=== PATIENT | female | born 1990 | race Caucasian/White ===

== ENCOUNTER → 2018-07-24 09:30 | Outpatient (CLI) | payer BC, SELFPAY ==
--- NOTE | 2018-07-24 09:32 | DI.US.S_ITS ---
PROCEDURE: US OB <= 14 WEEKS FETUS INDICATIONS: DATES OUTSIDE/PRIOR DATING DATA: Last menstrual period (LMP): 05/19/18. LMP-based estimated date of delivery (DYLON): 02/23/19. First dating scan (date and location): 07/24/18. Estimated date of delivery (DYLON) from first dating scan: 03/02/19. TECHNIQUE: Real-time scanning was performed of the fetus and maternal pelvic organs, with image documentation. Endovaginal scanning was also performed to better visualize the fetus and maternal ovaries. COMPARISON: None. FINDINGS: Embryo: Alicia-rump length measures 1.9 cm corresponding to 8 weeks 3 days. Embryonic heart rate measures 173 beats per minute. Measurement variability in dating: +/- 4 weeks by LMP, +/- 7 days by mean sac diameter (use before 6 weeks gestation if crown-rump length not able to be measured), +/- 5 days by crown-rump length (up to 8 weeks 6 days gestation), +/- 7 days by crown-rump length (up to 13 weeks 6 days gestation). Maternal organs: Ovaries within normal limits come with right corpus luteal cyst. Limited images through the kidneys demonstrate no hydronephrosis. IMPRESSION: 8 week 3 day single living IUP. Dictated by: Nam Joseph [facility] Interpreted: Stan Engel MD on 07/24/2018 at 11:49 Approved by: Stan Engel M.D. on 07/24/2018 at 12:59
[2018-07-24 10:44] LABS: Bilirubin Urine UA NEGATIVE (NEGATIVE); Color Urine UA YELLOW; Glucose Urine UA NEGATIVE (Normal); Ketones Urine UA TRACE (NEGATIVE); Leukocyte Esterase Urine UA TRACE (NEGATIVE); Nitrite Urine UA NEGATIVE (Negative); Occult Blood Urine UA 2+ (Negative); Protein Urine UA NEGATIVE (Negative); Specific Gravity Urine UA 1.015 (1.000-1.035); Urobilinogen Urine UA 0.2 E.U./dL (0.2)
[2018-07-24 11:15] LABS: Appearance Urine UA Cloudy
[2018-07-24 11:16] LABS: RBC Urine None Seen (0-5/HPF)
[2018-07-24 11:18] LABS: Bacteria Urine Many (>30); Squamous Epithelial Cell Urine 10-30 /HPF; WBC Urine 1-5/HPF (0-5/HPF)
[2018-07-24 11:19] LABS: Culture Indicated Urine Cult Not Indicated
[2018-07-24 12:08] LABS: Add Manual Diff / Slide Review NO; Basophils Percent Auto 0.5 % (0-2); Eosinophils Percent Auto 0.5 % (2-4); Hematocrit 38.4 % (36-46); Hemoglobin 13.1 g/dL (12.0-16.0); Lymphocytes Percent Auto 26.8 % (25-40); Mean Corpuscular HGB Conc 34.2 % (30-36); Mean Corpuscular Hemoglobin 31.9 PG (26-34); Mean Corpuscular Volume 93.4 fL (80-100); Monocytes Percent Auto 8.8 % (3-14); Neutrophils Absolute Auto 4500 /uL (1500-7000); Neutrophils Percent Auto 63.4 % (50-75); Platelet Count 248 X10^3/uL (150-400); Red Blood Cell Count 4.11 X10^6/uL (4.0-5.2); Red Cell Distribution Width 12.7 % (11.6-14.8); White Blood Cell Count 7.1 X10^3/uL (4.5-11.0)
[2018-07-24 16:14] LABS: Hepatitis B Surface Antigen NEGATIVE s/c (NEGATIVE); Rubella Antibody IgG 76.9 IU/mL (>15)
[2018-07-24 16:35] LABS: HIV 1 and 2 Antibody NEGATIVE (NEGATIVE); Hep C Virus Ab w/Reflex Quant NEGATIVE s/c (NEGATIVE)
[2018-07-25 21:27] LABS: RPR Screen Nonreactive (Nonreactive)
[2018-07-26 14:07] LABS: HSV 2 IGG AB < 0.90 index (< 0.90)
== END ==
PROVIDERS: Visit Provider Family Medicine
DX: Z34.91 Encounter for supervision of normal pregnancy, unspecified, first trimester (principal); Z3A.08 8 weeks gestation of pregnancy
CPT/HCPCS: 36415; 76801; 76817; 80055; 81003; 81015; 86695; 86696; 86703; 86787; 86803; 86850; 86900; 86901; 87086

== ENCOUNTER → 2018-08-08 15:41 | Outpatient (CLI) | payer BC, SELFPAY | PROVIDERS: Visit Provider Family Medicine | DX: R31.9 Hematuria, unspecified (principal) | CPT/HCPCS: 87077; 87086 ==

== ENCOUNTER → 2018-09-12 09:07 | Outpatient (CLI) | payer BC, SELFPAY ==
[2018-09-12 15:29] LABS: Urine N gonorrhoeae NOT DETECTED
[2018-09-12 15:41] LABS: Urine Chlamydia NOT DETECTED
== END ==
PROVIDERS: Visit Provider Family Medicine
DX: Z34.92 Encounter for supervision of normal pregnancy, unspecified, second trimester (principal); Z3A.15 15 weeks gestation of pregnancy
CPT/HCPCS: 87491; 87591

== ENCOUNTER → 2018-10-15 09:14 | Outpatient (CLI) | payer BC, SELFPAY ==
--- NOTE | 2018-10-15 09:15 | DI.US.S_ITS ---
PROCEDURE: US OB >= 14 WEEKS FETUS INDICATIONS: ANATOMY OUTSIDE/PRIOR DATING DATA: Last menstrual period (LMP): 05/19/18. LMP-based estimated date of delivery (DYLON): 02/23/19. First dating scan (date and location): 07/24/18. Estimated date of delivery (DYLON) from first dating scan: 03/02/19. TECHNIQUE: Real-time scanning was performed of the fetus, with image documentation and biometric measurements. Endovaginal scanning: Deferred COMPARISON: None. FINDINGS: General: A single living intrauterine gestation is present. Presentation: Transverse with head to the maternal left. Placenta: Placental position is posterior, without previa. Lower placental edge 2 cm or less from internal cervical os qualifies as low lying placenta. Amniotic fluid index: 15.4 cm, normal range is 5-24 cm. heart rate: 144 beats per minute. Maternal cervical canal: 3.4 cm long. Normal lower limit is 2.5 cm. biometrics: Biparietal diameter: 4.8 cm, 20 weeks 3 days plus -12 days Head circumference: 17.6 cm, 20 weeks one day plus or -10 days Abdominal circumference: 15.4 cm, 20 weeks 4 days plus -14 days Femur length: 3.5 cm, 20 weeks 6 days plus or -13 days Estimated gestational age from initial scan: not applicable. Composite gestational age from present scan: 20 weeks 4 days Estimated weight and percentile: 368+ or -54 g, 66th percentile Measurement variability for biometric dating: +/- 7 days from 14 weeks to 15 weeks 6 days gestation, +/- 10 days from 16 weeks to 21 weeks 6 days gestation, +/- 2 weeks from 22 weeks to 27 weeks 6 days gestation, +/- 3 weeks for 28 weeks gestation or later. weight reference: 4500 g or EFW >90/95% is considered macrosomia or large for gestational age. EFW <10% is small for gestational age. EFW 5% or less is considered intra-uterine growth restriction. Anatomic survey: Neuro: Ventricles are non-dilated at less than 10 mm. Cisterna magna is normal at 3-11 mm. Cerebellum is normal in size and morphology. Nuchal skin fold: Normal at less than 6 mm between 14-21 weeks gestational age. Face: Nose and lips, are normal. profile is not well-seen due to position. Spine: No evidence for spina bifida. Heart: 4-chambered heart is present, with normal ventricular outflow tracts. The incidental note is made of a 2.2 mm intracardiac echogenic focus within the left ventricle. Diaphragm: Diaphragm is intact. Stomach: Left-sided stomach is present. Kidneys: No hydronephrosis. Normal is less than 5 mm in 2nd trimester, less than 7 mm in 3rd trimester. Cord: 3-vessel cord has orthotopic insertion. Bladder: Normal in size. Extremities: All 4 extremities identified. IMPRESSION: 1. Single living intrauterine with symmetric and normal growth since the previous study. 2. Findings of an intracardiac echogenic focus within the left ventricle, nonspecific and likely of no clinical significance in the absence of other anomalies. Consider aneuploidy screening if not previously performed. 3. The profile is not well-seen. Nasal bone is unable to be assessed. Dictated by: Millie Patricio M.D. on 10/15/2018 at 11:09 Approved by: Millie Patricio M.D. on 10/15/2018 at 11:26
== END ==
PROVIDERS: PCP Family Medicine; Visit Provider Family Medicine
DX: Z36.89 Encounter for other specified antenatal screening (principal); Z3A.20 20 weeks gestation of pregnancy
CPT/HCPCS: 76811

== ENCOUNTER → 2018-11-29 08:14 | Outpatient (CLI) | payer BC, SELFPAY ==
[2018-11-29 09:53] LABS: Hematocrit 31.9 % (36-46); Hemoglobin 11.2 g/dL (12.0-16.0)
[2018-11-29 11:13] LABS: GTT (PREG) 1 Hour PP 50gm Dose 75 mg/dL (76-139)
== END ==
PROVIDERS: PCP Family Medicine; Visit Provider Family Medicine
DX: Z3A.26 26 weeks gestation of pregnancy (principal)
CPT/HCPCS: 82950; 85014; 85018

== ENCOUNTER → 2019-02-05 09:45 | Outpatient (CLI) | payer BC, SELFPAY ==
[2019-02-06 12:45] LABS: Strep Grp B PCR POS for Grp B Strep
== END ==
PROVIDERS: PCP Family Medicine; Visit Provider Family Medicine
DX: Z34.83 Encounter for supervision of other normal pregnancy, third trimester (principal); Z3A.36 36 weeks gestation of pregnancy
CPT/HCPCS: 87653

== ENCOUNTER 2019-02-25 05:39 | Inpatient (IN) | payer BC, SELFPAY ==
[2019-02-25 05:52] VITALS: BP 104/64
[2019-02-25] MEDS: LACTATED RINGERS 1,000 ML 999 ML IV (06:00)
[2019-02-25 06:23] LABS: Add Manual Diff / Slide Review NO; Basophils Absolute Auto 0 /uL (0-100); Basophils Percent Auto 0.8 % (0-2); Eosinophils Absolute Auto 100 /uL (0-450); Hematocrit 32.3 % (36-46); Hemoglobin 10.8 g/dL (12.0-16.0); Lymphocytes Absolute Auto 2300 /uL (1100-4500); Lymphocytes Percent Auto 36.2 % (25-40); Mean Corpuscular HGB Conc 33.5 % (30-36); Mean Corpuscular Volume 83.5 fL (80-100); Monocytes Absolute Auto 800 /uL (0-900); Monocytes Percent Auto 13.6 % (3-14); Neutrophils Absolute Auto 3000 /uL (1500-7000); Neutrophils Percent Auto 48.4 % (50-75); Platelet Count 168 X10^3/uL (150-400); Red Blood Cell Count 3.86 X10^6/uL (4.0-5.2); Red Cell Distribution Width 14.7 % (11.6-14.8); White Blood Cell Count 6.2 X10^3/uL (4.5-11.0)
[2019-02-25] MEDS: LACTATED RINGERS 1,000 ML 100 ML IV ×2 (06:37→09:53)
--- NOTE | 2019-02-25 07:12 | P.HPOB_ITS ---
OB HPI Date/Time Date of admission: 02/25/19 History of Present Condition Chief complaint: : 3 Para: 4 Estimated Date of Delivery: 03/02/19 Estimated Gestational Age (weeks): 39w 2d Narrative: Harper Rosario is a 28 year old at 39 weeks and 2 days here for repeat . Indications Operative indications ( section): previous uterine surgery History of Present care: good care, initiated at week # (10), number of visits (11) and pounds weight gain (38) Dating criteria: based on 1st trimester US only (discordant with LMP) Ultrasounds: normal 1st trimester US and abnormal US findings Abnormal ultrasound findings: Intracardiac echogenic focus on 20 week US, referral to MFM, isolated finding and patient declined further testing Obstetrical complications: none and hyperemesis Medical complications: gastrointestinal (GERD managed with Prilosec) Preadmission Labs Blood type: AB (+) positive -: Antibody screen: negative, GBS status: positive, HBsAG: negative, HIV: negative, HSV 1: positive, HSV 2: negative and RPR/VDLR: negative -: Chlamydia screen: not detected and Gonorrhea screen: not detected -: Rubella: immune and Varicella: immune HCT: 38.4 Urine: Negative 1 hr GTT: 75 Prior (ies) History: 10/2011 Spontaneous at 6 weeks, D&C 10/24/2012 Primary for breech at 38.2 weeks, 7/14 lbs female, breastfed 6 months 10/28/2014 Repeat at 39 weeks, 9.5 lbs female, breast fed 4 months Evaluation Evaluation Baseline heart rate: 140 Variability: Moderate (11-25) monitor accelerations: Present monitor decelerations: Absent Uterine Contraction Intensity: Mild Laboratory results: Laboratory Tests 02/25/19 06:00 WBC 6.2 RBC 3.86 L Hgb 10.8 L Hct 32.3 L MCV 83.5 MCH 28.0 MCHC 33.5 RDW 14.7 Plt Count 168 Neut % (Auto) 48.4 L Lymph % (Auto) 36.2 [place] % (Auto) 13.6 Eos % (Auto) 1.0 L Baso % (Auto) 0.8 Neut # (Auto) 3000 Lymph # (Auto) 2300 [place] # (Auto) 800 Eos # (Auto) 100 Baso # (Auto) 0 PFSH Social History marital status: number of children: 2 Smoking Status: Never smoker substance use type: does not use Meds Home Medications Medication Instructions Recorded Confirmed Type 64-iron 27 mg-Lmfolate 1 cap PO DAILY #90 cap 07/09/18 02/25/19 Rx 1.13 mg-algaloil,soy 581.92 mg capsule docusate calcium 240 mg capsule 240 mg PO .PRN cap 07/18/18 02/25/19 History Allergies Allergy/AdvReac Type Severity Reaction Status Date / Time Pertussis Vaccines Allergy Unknown Verified 02/25/19 05:53 amoxicillin [From Augmentin] AdvReac Mild Verified 02/25/19 05:53 clavulanic acid AdvReac Mild Verified 02/25/19 05:53 [From Augmentin] Review of Systems Constitutional Constitutional: Denies fatigue and Denies fever(s) Cardiovascular Cardiovascular: Denies foot swelling Respiratory Respiratory: Denies cough Gastrointestinal Gastrointestinal: Denies abdominal pain, Denies nausea and Denies vomiting Genitourinary Genitourinary: Denies abnormal vaginal bleeding Endocrine Endocrine: Denies fatigue Exam Vital Signs (past 8 hours): - 02/25/19 05:52 Blood Pressure 104/64 Const General: cooperative, healthy appearing and comfortable [facility] Head: normal to inspection Ears: hearing grossly normal bilaterally Nose: external nose normal Face and sinus: normal facial exam Mouth: oral mucosae normal Teeth and gingiva: dentition normal Eyes General: appearance normal, both eyes and all related structures Neck Neck: normal visual inspection Resp Effort & Inspection: normal respiratory effort Auscultation: clear to auscultation bilaterally Cardio Rate: regular rate Rhythm: regular rhythm Presentation: vertex Estimated Weight (lbs): 8 Back/Spine/Pelvis Back: normal to inspection Skin General: no rashes or lesions noted Neuro General: alert, awake and oriented x3 Extrem General: no clubbing, cyanosis or edema Objective Labs Result Diagrams: 02/25/19 06:00 Labs: Laboratory Results - last 24 hr 02/25/19 06:00 WBC 6.2 RBC 3.86 L Hgb 10.8 L Hct 32.3 L MCV 83.5 MCH 28.0 MCHC 33.5 RDW 14.7 Plt Count 168 Neut % (Auto) 48.4 L Lymph % (Auto) 36.2 [place] % (Auto) 13.6 Eos % (Auto) 1.0 L Baso % (Auto) 0.8 Neut # (Auto) 3000 Lymph # (Auto) 2300 [place] # (Auto) 800 Eos # (Auto) 100 Baso # (Auto) 0 Assessment and Plan Assessment and Plan Assessment and Plan narrative: 28 year old at 39+2 weeks gestation here for repeat . complicated by an intracardiac echogenic focus. Consultation with M was reassuring and patient declined further testing. Risks and benefits of reviewed with patient including risk of injury to surrounding organs (bladder, bowel, ureters). Consent signed and in chart. 2 g Ancef prior to surgery.
--- NOTE | 2019-02-25 07:34 | PM.PREOP ---
Pre-operative Note Interval Note History & Physical reviewed/Exam performed by Physician: Yes Changes to H&P: No
--- NOTE | 2019-02-25 07:42 | SUR.OPER ---
Supine on Padded OR bed, head on pillow, safety belt at thigh, arms secured on padded arm boards at <90 degrees abduction. Bump under right buttock. Legs uncrossed with pillow under knees, gel pad to heels, tape over blanket to lower legs.
[2019-02-25] MEDS: CEFAZOLIN 2 GM/100 ML FROZ.PIGGY IV (08:20)
--- NOTE | 2019-02-25 08:55 | SUR.OPER ---
preoperative FHT 145, live female at 0855
--- NOTE | 2019-02-25 09:00 | SUR.OPER ---
APGARS 9/9
[2019-02-25 09:45] VITALS: BP 107/65; PULSE 85; RESP 10; TEMP 37.1; O2SAT 99
--- NOTE | 2019-02-25 09:48 | PM.OP.1 ---
Operative Date/Time/Diagnoses Date of procedure: 02/25/19 Time of procedure: 08:30 Pre-op diagnosis: 39 weeks of H/o Post-op diagnosis: same Procedure & Clinicians Procedure: Repeat low transverse section Same procedure as scheduled: Yes Indications: 39 weeks of History of Surgeon: Sandra Cortes Patient Scheduling Manager: Marivel Mcwilliams Anesthesia Type: Spinal Operative Notes Findings: Vigorous female , normal tubes and ovaries Closure Type: primary Applied: catheter Estimated Blood Loss (mL): 800 Blood products transfused: none Procedure in detail: The patient was taken to the operating room where she was placed in the seated position. Spinal anesthesia was administered. She was then placed in the dorsal supine position with a leftward tilt. She was prepped and draped in the usual sterile fashion. A timeout was performed. After spinal analgesia was found to be adequate, a Pfannenstiel skin incision was made 2 fingerbreadths above the pubic symphysis over her existing scar and carried through to the underlying layer fascia. The fascia was nicked in the midline and the incision extended bilaterally with Gonzalez scissors. The superior aspect of the fascial incision was grasped with a Yordy clamps, elevated, and the underlying rectus muscles dissected off sharply and bluntly as well as with the cautery. Attention was then turned to the inferior aspect of this incision which in a similar fashion was grasped with a Yordy clamps, elevated, and the underlying rectus muscles dissected off sharply and bluntly. The rectus muscles were in the midline. The peritoneum was identified, grasped between 2 hemostats, and entered sharply with the Metzenbaum scissors. This incision was extended superiorly and inferiorly with good visualization of the bladder. The bladder blade was inserted. The vesicouterine peritoneum was identified, grasped with the pickup, and entered sharply with the Metzenbaum scissors. This incision was extended bilaterally, and the bladder flap was created digitally. The bladder blade was reinserted. The lower uterine segment was incised in a transverse fashion with the scalpel. Upon entering the amniotic sac there was a small amount clear amniotic fluid. The infant's head was delivered. The remainder of the body delivered without difficulty. The cord was double clamped and cut. The was handed off to waiting RN and RT. The placenta was delivered manually. The uterus was cleared of all clots and debris. The uterine incision was repaired with #1 chromic in a running interlocking fashion and a second layer the same suture was used for an imbricating layer. Hemostasis was achieved. The tubes and ovaries were examined and were found to be normal. The gutters were cleared of all clots and debris. The bladder flap was reapproximated using 2-0 Vicryl in a running fashion. The parietal peritoneum was closed using 2-0 Vicryl in a running fashion. The fascia was reapproximated using 0 Vicryl in a running fashion. Subcutaneous layer was copiously irrigated with warm normal saline. 3 simple interrupted sutures of 3-0 Vicryl were placed to reapproximate the subcutaneous layer. The skin was closed with 4-0 undyed Vicryl in a subcuticular fashion. Steri-Strips were placed. An Aquacel dressing was placed. The uterus was expressed of a small amount of old blood. Sponge, lap, and instrument counts were correct. The patient tolerated the procedure well, and was taken to PACU in stable condition. Complications: none Condition: stable Disposition: PACU
[2019-02-25 09:50] VITALS: BP 102/53; PULSE 84; RESP 12; TEMP 37.1; O2SAT 99
[2019-02-25 09:55] VITALS: BP 101/65; PULSE 90; RESP 12; TEMP 36.8; O2SAT 100
[2019-02-25 09:59] VITALS: BP 100/55; PULSE 86; RESP 13; TEMP 36.6; O2SAT 99
[2019-02-25] MEDS: LACTATED RINGERS 1,000 ML 125 ML IV ×2 (11:14→17:40)
[2019-02-25] MEDS: NALBUPHINE 20 MG/ML AMPUL 5 MG IV (11:52)
[2019-02-25] MEDS: KETOROLAC 30 MG/ML VIAL IV ×2 (15:40→21:32)
[2019-02-26] MEDS: MAG HYDROX/ALUM/SIMETH 30 ML UDC PO (02:38)
[2019-02-26] MEDS: KETOROLAC 30 MG/ML VIAL IV (03:39)
[2019-02-26 04:49] VITALS: BP 114/73; PULSE 78; RESP 16; TEMP 37.2
[2019-02-26 07:48] LABS: Hematocrit 27.3 % (36-46); Hemoglobin 9.3 g/dL (12.0-16.0)
[2019-02-26] MEDS: OXYCODONE/ACETAMINOPHEN 5/325 TABLET 1 TAB PO ×4 (08:08→22:15)
--- NOTE | 2019-02-26 08:17 | PM.OBPN.1 ---
Subjective - OB Patient comments: no complaints, pain well controlled, tolerating diet, flatus present and other (Bleeding as expected, ambulating and voiding without difficulty) [place] baby status: doing well and nursing well [place] feeding status: exclusively breast feeding Date Patient Seen: 02/26/19 Time Patient Seen: 08:00 Exam Vital Signs (past 8 hours): Oxygen Delivery Method Room Air temperature 98.9? blood pressure 120/75 heart rate 93 respirations 19 Narrative Exam Narrative: General: Awake and alert, no acute distress. HEENT: NCAT, EOMI, moist oral mucosa CV: Regular rate and rhythm, no murmurs, rubs or gallops Lungs: CTAB, no wheezes, rales, or rhonchi Abdomen: Aquacel dressing intact without drainage. Soft, nontender; bowel tones active; uterus firm 1 cm below umbilicus Extremities: Warm, no edema bilaterally, 2+ pedal pulses bilaterally Objective Labs Result Diagrams: 02/26/19 07:25 Labs: Laboratory Results - last 24 hr 02/26/19 07:25 Hgb 9.3 L Hct 27.3 L Assessment & Plan (1) Status post : Status: Acute Current Visit: Yes (2) 39 weeks gestation of : Status: Acute Current Visit: Yes Plan day: 1 plan OB: routine postop care Comments: Anticipate discharge home tomorrow Time Spent With Patient Total time spent is greater than 50% in coordination of care (as documented) at patient's floor/unit and/or counseling patient: less than 15 minutes
[2019-02-26] MEDS: IBUPROFEN 600 MG TABLET PO ×3 (09:15→22:15)
[2019-02-26] MEDS: DOCUSATE 250 MG CAPSULE PO (09:16)
[2019-02-26] MEDS: LANOLIN OINT 7 GM 1 APPLIC TOP (22:16)
[2019-02-27] MEDS: IBUPROFEN 600 MG TABLET PO ×2 (04:00→09:49)
[2019-02-27] MEDS: OXYCODONE/ACETAMINOPHEN 5/325 TABLET 1 TAB PO ×2 (04:00→09:48)
--- NOTE | 2019-02-27 08:20 | P.DS_ITS ---
Discharge Providers Date of admission: 02/25/19 05:39 Discharge Date: 02/27/19 Primary care physician: Sandra Cortes DO Consults: 02/25/19 10:43 Consult to Sales Development Consultant Routine Comment: Discharge provider: Sandra Cortes DO Summary Date Patient Seen: 02/27/19 Time Patient Seen: 08:00 Procedures: Repeat low transverse section Hospital Course: Patient is a 2 days after uncomplicated repeat section on 02/25/19 at 39 weeks and 2 days gestation. course uncomplicated. She is eating, ambulating, voiding and passing flatus. Bleeding is light. Pain well controlled with ibuprofen and Percocet. No concerns from patient or nursing staff. is going well, no issues in the . Peripartum Data Infant Delivery Method: Section complications: none [place] 1: Gender: Female Disposition of : home Discharge Diagnosis (1) Status post : Status: Acute (2) 39 weeks gestation of : Status: Acute Time Spent with Patient Total time spent providing and/or coordinating discharge services: Less than 30 minutes Objective Labs Result Diagrams: 02/26/19 07:25 Exam Vital Signs (past 8 hours): Oxygen Delivery Method Room Air Temperature 98.7? blood pressure 118/68 heart rate 82 General: Awake and alert, no acute distress. HEENT: NCAT, EOMI, moist oral mucosa CV: Regular rate and rhythm, no murmurs, rubs or gallops Lungs: CTAB, no wheezes, rales, or rhonchi Abdomen: Aquacel dressing intact without drainage. Soft, nontender; bowel tones active; uterus firm 2 cm below umbilicus Extremities: Warm, no edema bilaterally, 2+ pedal pulses bilaterally Discharge Plan Discharge Plan Patient Disposition: Home Discharge comment: Call for fevers, severe pain or bleeding through more than a pad an hour Discharge Med Rec/Prescriptions Prescriptions: New oxycodone-acetaminophen 5-325 mg Tablet 1 tab PO Q4HR PRN (Reason: Pain, Severe (7-10)) Qty: 20 RF: 0 ibuprofen 600 mg Tablet 600 mg PO Q6HR PRN (Reason: As Needed For Fever/Mild Pain) Qty: 30 RF: 0 docusate sodium 250 mg Capsule 250 mg PO DAILY Qty: 30 RF: 0 Continued [id number] [NeevoDHA (with algal oil)] 27 mg iron-1.13 mg- 581.92 mg capsule 1 cap PO DAILY Qty: 90 RF: 3 Discontinued docusate calcium 240 mg capsule 240 mg PO .PRN RF: 0 Follow up/Referrals: Sandra Cortes DO [Primary Care Provider] - 03/04/19 2:30 pm (Appointment,Monday,February at 2:30pm for aquacel removal) Provider Discharge Instructions Diet: Diet as Tolerated Skin/Wound/Dressing Care Report to your healthcare provider any signs of infection, such as:: chills, fever, night sweats and increased pain Visit Report/Discharge Packet Instructions: DI for Discharge Data Primary Care Provider: Sandra Cortes Attending Provider: Sandra Cortes Admit Date/Time: 02/25/19 05:39
== END 2019-02-27 10:11 | disposition home or self-care (01) | DRG 788 ==
PROVIDERS: Admitting Provider Family Medicine; PCP Family Medicine; Visit Provider Family Medicine
PROC: 10D00Z1 Extraction of Products of Conception, Low, Open Approach (ICD-10-PCS; CPT 59514; principal; 2019-02-25 07:45)
DX: O34.219 Maternal care for unspecified type scar from previous cesarean delivery (principal); Z3A.39 39 weeks gestation of pregnancy; Z37.0 Single live birth; O99.824 Streptococcus B carrier state complicating childbirth
CPT/HCPCS: 36415; 59050; 59510; 59514; 76815; 85014; 85018; 85025; 86850; 86900; 86901; J0690; J1885; J2274; J2300; J2405; J2590